=== PATIENT | male | born 1935 | race Caucasian/White ===

== ENCOUNTER → 2016-06-21 | Outpatient (CLI) | payer MEDICARE ==
[~2016-06-21] VITALS: Ht 177.8 cm; Wt 80.1 kg
[~2016-06-21] MED LIST: ARIC10TA PO; ARIC5TAB PO; ASPI325T PO; ATOR10 PO; ECASA PO; FEXO180T PO; FLON0.053; FLUT1SPR5 EACH NARE; INSULIN HUMAN REGULAR 1,000 UNITS/10 ML VIAL SQ PRN; LACTATED RINGER'S 1000 ML IV SCH; LEVO75TA42 PO; LEVO75TA43 PO; LIPI20TA PO; LISI-515 PO; LISI20 PO; MELO-1 PO; METOPROLOL TARTRATE 25 MG TAB PO PRN; MIDAZOLAM HCL 5 MG/5 ML VIAL ONE; NEUR800T PO; NIFE1TAB85 PO; PRIL20CA PO; PRIL20CA9 PO; PROPOFOL 200 MG/20 ML AMP IV ONE; PROS5TAB PO; PROS5TAB2 PO; SODIUM CHLORID 0.9% 500 ML IV SCH; TAMS0.4C4 PO; TAMS0.4C67 PO; fentaNYL CITRATE 1000 MCG/20 ML VIAL ONE; fentaNYL CITRATE 250 MCG/5 ML AMP ONE
[2016-06-21 11:17] VITALS: BP 142/85; PULSE 73; RESP 16; TEMP 97; O2SAT 96
[2016-06-21 13:21] VITALS: BP 116/72; PULSE 60; RESP 16; O2SAT 94
== END ==
LOC: HEND 10:11
PROVIDERS: ATTEND Hospitalist
DX: Z12.11 Encounter for screening for malignant neoplasm of colon (principal); K57.30 Diverticulosis of large intestine without perforation or abscess without bleeding; K22.2 Esophageal obstruction; K29.50 Unspecified chronic gastritis without bleeding; R13.10 Dysphagia, unspecified
CPT/HCPCS: 00810; 43239; 43248; 45378; 88305; 88312; C1769; J7120; J2250; J3010